=== PATIENT | male | born 1960 | race Caucasian/White ===

== ENCOUNTER 2017-12-13 09:52 | Day surgery (SDC) | payer OTHER ==
--- NOTE | 2017-12-10 16:43 | HP ---
CC: Dr. Mg* DATE OF ADMISSION: 12/13/2017. AGE: 57-year-old male. ADMITTING DIAGNOSIS: Left renal calculi. PLANNED PROCEDURE: Left stent insertion and shockwave lithotripsy of left renal calculi. SURGEON: Dr. Thompson. HISTORY OF PRESENT ILLNESS: Bro Castro is a 57-year-old gentleman who has had episodic left flank pain for the last year. He was evaluated and noted to have multiple bilateral renal calculi. On the left side, he has a 1.1 cm stone in the renal pelvis and a 1 cm stone in the mid to lower pole of the left kidney , in addition to a 6 calculus. In addition, he has small, nonobstructing calculi in the right kidney. PAST MEDICAL HISTORY: Significant for a history of hepatitis B ( ). PAST SURGICAL HISTORY: Unremarkable. MEDICATIONS ON ADMISSION: None. ALLERGIES: No known drug allergies. FAMILY HISTORY: His brother has kidney stones. SMOKING HISTORY: He is a nonsmoker. REVIEW OF SYSTEMS: He is otherwise in excellent health. There is no history of diabetes mellitus or any other major systemic illness. He denies any chest pain or shortness of breath. PHYSICAL EXAMINATION GENERAL: Pleasant, healthy-appearing gentleman. VITAL SIGNS: Blood pressure 110/70, pulse 86 per minute and regular, oxygen saturation 96 percent on room air. CARDIOVASCULAR: Regular rate and rhythm. S1, S2. LUNGS: Clear bilaterally. ABDOMEN: Soft with mild left flank tenderness. IMPRESSION: [id number]-old gentleman with multiple left renal calculi. I have discussed the procedure of stent insertion and lithotripsy, as well as possible risks of bleeding, infection, incomplete fragmentation, and possible injury to the kidney. PLAN: Left stent insertion and shockwave lithotripsy of left renal calculi. [id number]/[facility] #: [id number] [facility]
[~2017-12-13 09:52] MED LIST: Buffered Lidocaine 0.9% SYRIN* 5 ML/SYR SYRINGE INTRADERM ONE; Famotidine IV* 10 MG/ML 2 ML (20 mg) IV ONE; Metoclopramide TAB* 10 MG PO ONE
[2017-12-13] MEDS ORDERED: Famotidine IV* 10 MG/ML 2 ML (20 mg) ONE (10:12)
[2017-12-13] MEDS ORDERED: Metoclopramide TAB* 10 MG ONE (10:13)
[2017-12-13] MEDS ORDERED: cefTRIAXone(*) 2 GM ADDV.VIAL IVPB ONE (11:05)
[2017-12-13] MEDS ORDERED: Ketorolac INJ* 30 MG/ML 1 ML VIAL ONE (11:48)
[2017-12-13] MEDS ORDERED: Dexamethasone IV* 4 MG/ML 1 ML (4 MG) ONE (11:48)
[2017-12-13] MEDS ORDERED: fentaNYL* 50 MCG/ML 2 ML VIAL (100 MCG VIAL) ONE (11:48)
[2017-12-13] MEDS ORDERED: Propofol* 10 MG/ML 20 ML BTL IV PUSH ONE (11:48)
[2017-12-13] MEDS ORDERED: Lidocaine 2% PF * 5 ML VIAL ONE (11:48)
[2017-12-13] MEDS ORDERED: Ondansetron INJ* 2 MG/ML VIAL ONE (11:48)
[2017-12-13] MEDS ORDERED: KETAMINE HCL* 50 MG/ML 10 ML VIAL ONE (11:49)
[2017-12-13] MEDS ORDERED: Midazolam* 1 MG/ML 5 ML VIAL (5 MG) ONE (11:49)
--- NOTE | 2017-12-13 12:01 | RAD ---
HISTORY: shockwave lithotripsy COMPARISONS: November 15, 2017 VIEWS: Frontal views of the abdomen. FINDINGS: BOWEL: There is a nonspecific bowel gas pattern, with nondilated small bowel gas noted. CALCULI: There are stable axillary line the renal parenchymal shadow as bilaterally, the largest on the right measuring up to 1.1 cm in size.. BONES AND SOFT TISSUES: Mild degenerative changes are noted. OTHER FINDINGS: The lung bases are clear. There is no subphrenic gas. IMPRESSION: STABLE BILATERAL NEPHROLITHIASIS
[2017-12-13] MEDS ORDERED: Iohexol 180 (CONTRAST) 10 ML SDV IV ONE (12:43)
[2017-12-13] MEDS ORDERED: EPHEDrine (Pressors)* 50 MG/ML VIAL ONE (13:13)
[2017-12-13] MEDS ORDERED: Furosemide IV* 10 MG/ML 2 ML VIAL (20 MG) ONE (13:18)
[2017-12-13] MEDS ORDERED: Naloxone* 0.4 MG/ML 1 ML VIAL IV PRN (13:39)
[2017-12-13] MEDS ORDERED: Ondansetron INJ* 2 MG/ML VIAL IV PRN (13:39)
[2017-12-13] MEDS ORDERED: fentaNYL* 50 MCG/ML 2 ML VIAL (100 MCG VIAL) IV PRN (13:39)
[2017-12-13] MEDS ORDERED: oxyCODONE/Acetamin 5/325 MG* TAB PO PRN (13:39)
[2017-12-13] MEDS ORDERED: Tamsulosin CAP* 0.4 MG ONE (14:44)
[2017-12-13] MEDS ORDERED: oxyCODONE/Acetamin 5/325 MG* TAB ONE (15:19)
[2017-12-13 16:57] VITALS: BP 110/69
--- NOTE | 2017-12-13 17:00 | RAD ---
INDICATION: Left-sided nephrolithiasis. Left ureteral stent placement COMPARISON: December 13, 2017 TECHNIQUE: A single view of the abdomen is submitted. FINDINGS: Bones: There are no acute bony findings. Soft tissues: The soft tissues appear normal. The psoas margins are sharp. Bowel gas pattern: Normal Calcifications: Left-sided renal calculi now show interval fragmentation.. Other: Placement of left ureteral stent in expected position IMPRESSION: FRAGMENTATION OF LEFT URETERAL CALCULI. LEFT URETERAL STENT PLACEMENT
--- NOTE | 2017-12-13 22:43 | OP ---
CC: Dr. Mg; Serge Thompson MD* OPERATIVE SUMMARY: DATE OF OPERATION: 12/13/17 - [facility] DATE OF : 58 SURGEON: Serge Thompson MD ANESTHESIOLOGIST: Dr. Serrano. ANESTHESIA: General. PRE-OP DIAGNOSIS: Left renal calculi. POST-OP DIAGNOSIS: Left renal calculi. OPERATIVE PROCEDURE: 1. Left retrograde pyelogram and left stent insertion. 2. Shockwave lithotripsy of multiple left renal calculi. COMPLICATIONS: None. POSTOPERATIVE CONDITION: Stable. STENT USED: A 7-[place] stent, left ureter. INDICATIONS: Bro Castro is a 57-year-old gentleman, who was evaluated and noted to have multiple left renal calculi. DESCRIPTION OF PROCEDURE: After induction of general anesthesia, the patient was placed in a dorsal lithotomy position. Sequential compression devices were in place and functioning. Initial cystoscopy revealed a normal-appearing urethra and a mildly enlarged prostate with predominant median lobe enlargement and a normal- appearing bladder. A left retrograde pyelogram revealed fullness of the left collecting system with a dilated renal pelvis, which may represent a partial left ureteropelvic junction obstruction. A 7-[place] stent was introduced and positioned under fluoroscopy with good proximal and distal positioning obtained. Next, the patient was placed supine on the lithotripsy table. There were several clusters of stones distributed throughout the upper mid and lower pole and shockwave lithotripsy was carried out at a rate of 60 shocks per minute. After the initial 300 shocks, there was a pause in lithotripsy for several minutes in an effort to minimize any potential trauma to the kidney. Lithotripsy was then resumed and periodic imaging revealed good localization and fragmentation. A total of 2400 shocks were distributed amongst various calculi. The patient tolerated the procedure satisfactorily and was transferred back to the recovery area in stable condition. [id number]/[facility] #: [id number] [facility]TD[facility]
== END 2017-12-13 17:00 | disposition home or self-care (01) ==
LOC: OR 09:52
PROVIDERS: ATTEND Urology
DX: N20.0 Calculus of kidney (principal); B18.1 Chronic viral hepatitis B without delta-agent
CPT/HCPCS: 74018; A9270-GY; C1876; J0696; J1100; J1885; J1940; J2250; J2405; J2704; J3010

== ENCOUNTER 2018-05-16 09:52 | Day surgery (SDC) | payer OTHER ==
--- NOTE | 2018-05-06 19:44 | HP ---
CC: Dr. Mg;* ADMITTING HISTORY AND PHYSICAL: DATE OF ADMISSION: 05/16/18 ADMITTING DIAGNOSIS: Right renal calculus. PLANNED PROCEDURE: Shockwave lithotripsy of right renal calculus. SURGEON: Dr. Thompson. HISTORY OF PRESENT ILLNESS: Bro Castro is a 58-year-old gentleman who had originally been evaluated for bilateral renal calculi, especially multiple large calculi on the left side. He had successfully undergone treatment with left stent insertion and shock wave lithotripsy and has a small residual fragment in the left kidney. On the right side, he had been noted to have a 8- mm calculus at the ureteropelvic junction and an additional 3-mm calculus with a dilated right renal pelvis. He is now being brought in for shockwave lithotripsy of the right renal calculus. PAST MEDICAL HISTORY: Significant for: 1. Hepatitis B (recessive carrier). 2. Renal calculi. PAST SURGICAL HISTORY: Significant for left stent insertion and shockwave lithotripsy in December 2017. MEDICATIONS ON ADMISSION: None. ALLERGIES: No known drug allergies. SOCIAL HISTORY: Smoking History: He is a nonsmoker. REVIEW OF SYSTEMS: He is otherwise in excellent health. There is no history of diabetes mellitus or any other major systemic illness. PHYSICAL EXAMINATION GENERAL: Reveals a pleasant, healthy-appearing, middle-aged gentleman. VITAL SIGNS: Blood pressure is 110/78, pulse 69 per minute and regular, oxygen saturation 98% on room air, temperature 96.7. LUNGS: Clear bilaterally. CARDIOVASCULAR: Regular rate and rhythm. S1, S2 ABDOMEN: Soft without masses. IMPRESSION: A 58-year-old gentleman with 8-mm calculus in the right ureteropelvic junction without hydronephrosis. Planned procedure is shockwave lithotripsy of right renal calculus. [id number]/[facility] #: [id number] [facility]
[~2018-05-16 09:52] MED LIST changes: -Buffered Lidocaine 0.9% SYRIN* 5 ML/SYR SYRINGE INTRADERM ONE; +Buffered Lidocaine 1% SYRIN* 1 ML/SYRINGE INTRADERM ONE; +Dexamethasone IV* 4 MG/ML 1 ML (4 MG) IV SLOW PU ONE; +Lactated Ringers 1000 ML Bag* 1,000 ML IV SCH; -Metoclopramide TAB* 10 MG PO ONE
[2018-05-16] MEDS ORDERED: cefTRIAXone(*) 2 GM ADDV.VIAL IVPB ONE (10:24)
[2018-05-16] MEDS ORDERED: Famotidine IV* 10 MG/ML 2 ML (20 mg) ONE (10:24)
[2018-05-16] MEDS ORDERED: Buffered Lidocaine 1% SYRIN* 1 ML/SYRINGE ONE (10:24)
[2018-05-16] MEDS ORDERED: Dexamethasone IV* 4 MG/ML 1 ML (4 MG) ONE (10:24)
[2018-05-16] MEDS ORDERED: Midazolam* 1 MG/ML 2 ML VIAL (2 MG) ONE (11:17)
[2018-05-16] MEDS ORDERED: fentaNYL* 50 MCG/ML 2 ML VIAL (100 MCG VIAL) ONE (11:17)
[2018-05-16] MEDS ORDERED: Propofol* 10 MG/ML 20 ML BTL ONE (11:18)
[2018-05-16] MEDS ORDERED: Ondansetron INJ* 2 MG/ML VIAL ONE (11:18)
[2018-05-16] MEDS ORDERED: Naloxone* 0.4 MG/ML 1 ML VIAL IV PRN (12:38)
[2018-05-16] MEDS ORDERED: DiMENhydriNATE IV* 50 MG/ML VIAL IV PUSH PRN (12:38)
[2018-05-16] MEDS ORDERED: fentaNYL* 50 MCG/ML 2 ML VIAL (100 MCG VIAL) IV PRN (12:38)
[2018-05-16 13:34] VITALS: BP 112/78
--- NOTE | 2018-05-16 20:58 | OP ---
DATE OF OPERATION: 05/16/18 - [facility] DATE OF : 58 SURGEON: Dr. Thompson. ANESTHESIOLOGIST: Dr. Montgomery. ANESTHESIA: General. PRE-OP DIAGNOSIS: Bilateral renal calculi. OPERATIVE PROCEDURE: Shock wave lithotripsy of right renal calculus. INDICATIONS: Bro Castro is a 58-year-old gentleman who had previously been treated for left renal and ureteral calculi. He was also noted at that time to have 6 mm calculus in the right renal pelvis and is now being brought in for treatment of the same. COMPLICATIONS: None. POSTOPERATIVE CONDITION: Stable. DESCRIPTION OF PROCEDURE: After induction of general anesthesia, the patient was placed on the lithotripsy table in supine position. The calculus was identified using fluoroscopy, and shock wave lithotripsy was commenced at a rate of 90 shocks per minute. After the initial 300 shocks, there was a pause in lithotripsy for several minutes in an effort to minimize any potential trauma to the kidney. Lithotripsy was then resumed and a total of 1000 shocks were delivered. The patient tolerated the procedure satisfactorily and was transferred back to the recovery area in stable condition. [id number]/[facility] #: [id number] MTDD
== END 2018-05-16 14:01 | disposition home or self-care (01) ==
LOC: OR 09:52
PROVIDERS: ATTEND Urology
DX: N20.0 Calculus of kidney (principal); B18.1 Chronic viral hepatitis B without delta-agent; Z87.891 Personal history of nicotine dependence
CPT/HCPCS: 74018; J0696; J1100; J2250; J2405; J2704; J3010

== ENCOUNTER 2019-03-08 19:04 | Emergency (ER) | payer OTHER ==
[2019-03-08 19:24] VITALS: BP 132/93
--- NOTE | 2019-03-08 19:59 | UC ---
Cardiac HPI - HPI Summary HPI Summary: 59-year-old male comes in with a chief complaint of chest pain. Patient's been having left-sided intermittent chest pain for approximately one year. At its worst it's 5 out of 10. Usually it's variable anywhere from 1 out of 10-5 out of 10. Patient's been having some left arm pain for the last 1 week. Patient reports this started after lifting something heavy. He reports he has a history of C6 radiculopathy the presents with left arm pain. Chest pain lasts anywhere from a couple of seconds to 10 minutes duration. Denies any nausea sweating or shortness of breath with. Denies any history of hypertension high cholesterol or diabetes. No prior stress test. Denies any family cardiac history. He reports that when he exercises with vigorous walking he has no chest pain. He called his primary care today to arrange an appointment and was told to get further evaluation. Patient is not sure if he was told to go the emergency department or to come here to urgent care. - History of Current Complaint Chief Complaint: UCChestPain Stated Complaint: CHEST PAIN Time Seen by Provider: 03/08/19 19:09 Pain Intensity: 4 - Allergy/Home Medications Allergies/Adverse Reactions: Allergies Allergy/AdvReac Type Severity Reaction Status Date / Time No Known Allergies Allergy Verified 03/08/19 19:24 Home Medications: Home Medications Aloe Vera Norco Gel Extract [Aloe Vera Norco] 1 powder PO DAILY 03/08/19 [History Confirmed 03/08/19] Chakra [place] 3 cap PO DAILY 03/08/19 [History Confirmed 03/08/19] Glucos Sul 2Kcl/MSM/Chond/C/Mn [Glucosamine Chondroitin Cap] 1 each PO DAILY 10/19 [History Confirmed 03/08/19] Vitamin E CAP* 400 unit PO DAILY 03/08/19 [History Confirmed 03/08/19] PMH/Surg Hx/FS Hx/Imm Hx Previously Healthy: Yes - Surgical History Surgical History: Yes Surgery Procedure, Year, and Place: Lithotripsy with stent placement-Left 2017 [facility] [place] - Family History Known Family History: Negative: Cardiac Disease - Social History Alcohol Use: Occasionally Alcohol Amount: 2-3 times a month Substance Use Type: None Smoking Status (MU): Never Smoked Tobacco Have You Smoked in the Last Year: No Review of Systems All Other Systems Reviewed And Are Negative: Yes Constitutional: Positive: Negative - SEE HPI Skin: Positive: Negative Eyes: Positive: Negative ENT: Positive: Negative Respiratory: Positive: Negative Cardiovascular: Positive: Chest Pain Gastrointestinal: Positive: Negative Motor: Positive: Negative Neurovascular: Positive: Negative Musculoskeletal: Positive: Negative Neurological: Positive: Negative Psychological: Positive: Negative Is Patient Immunocompromised?: No Physical Exam Triage Information Reviewed: Yes Appearance: Well-Appearing, No Pain Distress, Well-Nourished Vital Signs: Initial Vital Signs Temp 98.5 F 03/08/19 19:19 Pulse 65 03/08/19 19:19 Resp 16 03/08/19 19:19 BP 132/93 03/08/19 19:19 Pulse Ox 98 03/08/19 19:19 Vital Signs Reviewed: Yes Eye Exam: Normal Eyes: Positive: Conjunctiva Clear Neck: Positive: Supple Respiratory: Positive: Lungs clear, Normal breath sounds, No respiratory distress Cardiovascular: Positive: RRR Musculoskeletal: Positive: Strength Intact, ROM Intact, Other: - Normal bilateral radial pulses. Fingers wrist elbows shoulders have full range of motion and full strength. Normal sensation in both arms normal capillary refill. Neurological: Positive: Alert, Muscle Tone Normal Psychological: Positive: Age Appropriate Behavior Skin Exam: Normal Diagnostics - EKG Cardiac Rate: NL - AT 1915 Cardiac Rhythm: Sinus: Normal - 68BPM Ectopy: None Summary of EKG Findings: Minimal ST elevation in anterior leads. In V1 V3 V4 V5 V6 the ST segment is concave up. In V2 the ST segment is elevated from baseline half millimeter and it is flat. - Assessment/Plan Course Of Treatment: I discussed the EKG results with the patient. I recommended he go to the emergency department for further evaluation of his chest pain. - Clinical Impression Provider Diagnosis: Chest pain Discharge ED - Sign-Out/Discharge Documenting (check all that apply): Patient Departure All imaging exams completed and their final reports reviewed: No Studies - Discharge Plan Condition: Stable Disposition: HOME-RECOMMEND TO ED Patient Education Materials: Chest Pain (ED) Referrals: Gerald Mg MD [Primary Care Provider] - Additional Instructions: GO DIRECTLY TO THE EMERGENCY DEPARTMENT FOR FURTHER EVALUATION OF YOUR CHEST PAIN. Troponin is a blood laboratory value that can be used to determine if someone's had heart damage. Classic symptoms of a heart attack are chest pain with radiation to the arm or neck, shortness of breath, nausea, sweating. - Billing Disposition and Condition Condition: STABLE Disposition: Home-Recommend to ED
--- OUTSIDE RECORDS SUMMARY | 2019-03-08 20:04 | XMS REPORT | Continuity of Care Document ---
:1960 External Reference #:[id number] Author Name Laine Brady O.D. Address [address] [place] [address] Care Team Providers Name Role Phone Fox Booth M.D. - Internal Care Team Information [employer] [phone] Medicine Problems Active Problems Provider Date Nuclear senile cataract Laine Brady O.D. Onset: 10/05/2014 Tear film insufficiency Laine Brady O.D. Onset: 10/05/2014 Conjunctival hemorrhage Yen Connelly O.D. Onset: 06/05/2016 Presbyopia Laine Brady O.D. Onset: 02/11/2019 Regular astigmatism Laine Brady O.D. Onset: 02/11/2019 Hypermetropia Laine Brady O.D. Onset: 02/11/2019 Social History Type Date Description Comments Sex Unknown ETOH Use Denies alcohol use Tobacco Use Start: Unknown Patient has never smoked Recreational Drug Use Denies Drug Use Smoking Status Reviewed: 02/11/19 Patient has never smoked Allergies, Adverse Reactions, Alerts Description No Known Drug Allergies Medications Active Medications SIG Qnty Indications Ordering Provider Date Multivitamins Unknown Capsules Ibuprofen as needed Unknown 200mg Tablets Immunizations Description No Information Available Vital Signs Date Vital Result Comment 06/05/2016 12:00pm BP Systolic 135 mmHg BP Diastolic 85 mmHg Heart Rate 67 /min Respiratory Rate 16 /min Results Description No Information Available Procedures Description No Information Available Medical Devices Description No Information Available Encounters Description No Information Available Assessments Date Code Description Provider 02/11/2019 H25.13 Age-related nuclear cataract, bilateral Laine Brady O.D. 02/11/2019 H52.03 Hypermetropia, bilateral Laine Brady O.D. 02/11/2019 H52.223 Regular astigmatism, bilateral Laine Brady O.D. 02/11/2019 H52.4 Presbyopia Laine Brady O.D. Plan of Treatment 02/11/2019 - Laine Brady O.D.H25.13 Age-related nuclear cataract, bilateralComments:You have nuclear sclerosis, which is hardening of your natural lens. This is normal as a person ages.Follow up:2 YEARS You can expect to have your eyes dilated at your next visit. If Dr. Brady orders any additional testing, it may require extra time. We recommend that you bring sunglasses, as dilation drops often make you light sensitive until they wear off. We always recommend you bring someone to drive youhome if you are uncomfortable driving with your eyes dilated. If you have any questions before your next visit, feel free to call our office at .H52.03 Hypermetropia, bilateralComments:You have Hyperopia, or far sightedness, I have given you a prescription for glasses.H52.223 Regular astigmatism, bilateralComments:Astigmatism is a common vision condition that happens when a person's cornea is not symmetrical. Dr. Brady has given you a prescription to correct for this.H52.4 PresbyopiaComments:Smoking can increase the risk of developing or worsening any eye related disease, as well as affect your overall health. If you are a smoker, we strongly recommend that you quit.If you are not a smoker, we strongly recommend that you do not start. You have presbyopia. This is when the lens in your eye loses the ability to change focus , and happens as we age. A pair of reading glasses will help you see up close. Functional Status Description No Information Available Mental Status Description No Information Available Referrals Description No Information Available
== END 2019-03-08 20:05 | disposition home health service (06) ==
LOC: UCEAST 19:04
DX: R07.89 Other chest pain (principal); M79.602 Pain in left arm
CPT/HCPCS: 93005; 99212; G0463